=== PATIENT | female | born 1980 | race Hispanic/Latino ===

== ENCOUNTER 2025-05-13 21:25 | Emergency (ER) | payer BC ==
[~2025-05-13] VITALS: Ht 165.1 cm; Wt 80.7 kg
[2025-05-13] MEDS: ACETAMINOPHEN 325 MG TAB PO ONE (22:38)
[2025-05-13] MEDS: KETOROLAC TROMETHAMINE 30 MG/ML VIAL IV STA (22:38)
[2025-05-13] MEDS: LACTATED RINGER'S 1,000 ML INJ ONE (22:39)
[2025-05-14] MEDS ORDERED: ZANAFLEX4 MG PO (00:02)
[2025-05-14] MEDS ORDERED: DIPHENHYDRAMINE25 M2 PO (00:02)
[2025-05-14] MEDS ORDERED: KETOROLAC TROME10 MG PO (00:02)
[2025-05-14] MEDS ORDERED: TYLENOL325 MG PO (00:02)
[2025-05-14 00:41] VITALS: PULSE 69; RESP 16; TEMP 97.6
[2025-05-14 00:42] VITALS: BP 138/82; PULSE 69; RESP 16; TEMP 97.6; O2SAT 99
== END 2025-05-14 00:49 | disposition home or self-care (01) ==
LOC: FSED 21:33
DX: G44.209 Tension-type headache, unspecified, not intractable (principal); E11.65 Type 2 diabetes mellitus with hyperglycemia; I10 Essential (primary) hypertension; M43.6 Torticollis; K76.0 Fatty (change of) liver, not elsewhere classified
CPT/HCPCS: 70450; 72125; 80053; 81003; 81025; 85025; 96374; 99284; J1885; J7121